=== PATIENT | male | born 1975 | race Hispanic/Latino ===

== ENCOUNTER 2019-08-03 20:18 | Inpatient (IN) | payer SELFPAY ==
[~2019-08-03] VITALS: Ht 175.3 cm; Wt 89.0 kg
--- NOTE | 2019-08-03 21:06 | Diagnostic Imaging Report ---
EXAMINATION: Head CT without contrast. HISTORY:Dizziness, nausea and vomiting. COMPARISON:None. TECHNIQUE: Multidetector axial images were obtained from the foramen magnum to the vertex without contrast. The images were reconstructed using brain and bone algorithms. Thin section brain images were reformatted into coronal and sagittal planes. Dose modulation, iterative reconstruction, and/or weight based adjustment of the mA/kV was utilized to reduce the radiation dose to as low as reasonably achievable. Intravenous contrast: None IMAGE QUALITY: Acceptable. FINDINGS: Skull/scalp: No lytic or blastic. lesions. No surgical changes. Parenchyma: No abnormal density. No acute hemorrhage, mass or acute major vascular territorial infarct. Arteries: No density suggestive of thrombosis. Dural sinuses: No abnormal density suggestive of thrombosis. Ventricles: No hydrocephalus or displacement. Extra-axial spaces: No abnormal density. Brain volume: Mild bifrontal cerebral volume loss. Craniocervical junction: No mass, Chiari malformation, or basilar invagination. Sella: No mass. Paranasal/mastoid sinuses: Under pneumatization and sclerosis of bilateral mastoid air cells possibly represent sequel of chronic inflammatory process. IMPRESSION: No acute intracranial abnormality. Mild predominantly bifrontal cerebral volume loss. Signed by: Dr. Nelia Trejo M.D. on 08/03/2019 9:03 PM
[2019-08-03] MEDS ORDERED: SODIUM CHLORIDE 0.9% 1000ML 1,000 ML IV STA (21:14)
[2019-08-03] MEDS ORDERED: HYDRALAZINE HCL 20 MG/ML VIAL IV ONE (21:15)
[2019-08-03 21:37] LABS: BASOPHILS # (AUTO) 0.1 (0.0-0.1); BASOPHILS % 0.5 % (0.0-1.0); HEMATOCRIT 46.6 % (38.2-49.6); HEMOGLOBIN 16.9 g/dL (14.0-18.0); LYMPHOCYTES # (AUTO) 0.8 (1.0-3.2); LYMPHOCYTES % 7.5 % (18.0-39.1); MEAN CORPUSCULAR HEMOGLOBIN 30.8 pg (28-32); MEAN CORPUSCULAR HGB CONC 36.3 g/dL (31-35); MONOCYTES # (AUTO) 0.3 (0.2-0.8); MONOCYTES % 3.2 % (4.4-11.3); NEUTROPHILS # (AUTO) 9.2 (2.1-6.9); NEUTROPHILS % 88.4 % (38.7-80.0); PLATELET COUNT 211 x10e3/uL (140-360); RED BLOOD COUNT 5.48 x10e6/uL (4.3-5.7); RED CELL DISTRIBUTION WIDTH 13.2 % (11.7-14.4)
[2019-08-03 21:59] LABS: ALANINE AMINOTRANSFERASE 41 IU/L (0-55); ALBUMIN/GLOBULIN RATIO 0.9 (0.8-2.0); ALKALINE PHOSPHATASE 93 IU/L (40-150); CALCIUM 9.8 mg/dL (8.4-10.2); CARBON DIOXIDE 23 mmol/L (22-29); CHLORIDE 97 mmol/L (98-107); CREATINE KINASE 162 IU/L (30-200); CREATININE, SERUM 1.29 mg/dL (0.72-1.25); EST GLOMERULAR FILTRATION RATE > 60 ML/MIN (60-); GLUCOSE 309 mg/dL (74-118); LIPASE 12 U/L (8-78); SODIUM 136 mmol/L (136-145)
--- NOTE | 2019-08-03 22:05 | Diagnostic Imaging Report ---
EXAMINATION: CHEST SINGLE (PORTABLE) COMPARISON: None INDICATION: Diabetic shock ^ERMD ORDER ^[id number] ^2135 ^Y DISCUSSION: Frontal view of the chest obtained at 2135 hours. HEART AND MEDIASTINUM: The heart is top normal in size, possibly due to portable technique. The aorta is mildly tortuous. Vascular markings are mildly prominent. LINES: None. LUNGS: Lung volumes are low. Minimal bibasilar atelectasis. PLEURA: Mild eventration of the right diaphragm. Costophrenic angles are sharp. No pneumothorax. BONES AND SOFT TISSUES: No focal osseous lesion. The soft tissues are normal. IMPRESSION: Low lung volumes with minimal bibasilar atelectasis. Signed by: Dr. Vicenta Rosas MD on 08/03/2019 10:02 PM
[2019-08-03 22:42] LABS: BLOOD UREA NITROGEN 22 mg/dL (7-26); BUN/CREATININE RATIO 16 (6-25)
[2019-08-03] MEDS ORDERED: METOPROLOL TARTRATE INJ 1 MG/ML VIAL IV ONE (22:45)
[2019-08-03] MEDS ORDERED: ASPIRIN 81 MG CHEW TAB PO ONE (23:00)
--- OUTSIDE RECORDS SUMMARY | 2019-08-03 23:14 | XMS REPORT ---
Author Author [facility] Address Unknown Phone Unavailable Care Team Providers Care [employer] Consultant Name Role Phone Jv GUZMAN Unavailable Unavailable Problems This patient has no known problems. Allergies, Adverse Reactions, Alerts This patient has no known allergies or adverse reactions. Medications This patient has no known medications. Results Test Description Test Time Test Comments Text Results Atomic Results Result Comments CHEST SINGLE (PORTABLE) 2019-08-03 22:00:00 [place] [id number] Patient Name: CECILIA GALLOWAY MR #: [id number] : 1975 Age/Sex: 43/M Req #: [id number] Adm Physician: Ordered by: ABHINAV GUZMAN MD Report #: [id number] Location: ER Room/Bed: Procedure: [id number] DX/CHEST SINGLE (PORTABLE) Exam Date: 08/03/19 Exam Time: 2134 REPORT STATUS: Signed EXAMINATION: CHEST SINGLE (PORTABLE) COMPAR LEEANN: None INDICATION: Diabetic shock ERMD ORDER [id number] 2135 Y DISCUSSION: Frontal view of the chest obtained at 2135 hours. HEART AND MEDIASTINUM: The heart is top normal in size, possibly due to portable technique. The aorta is mildly tortuous. Vascular markings are mildly prominent. LINES: None. LUNGS: Lung volumes are low. Minimal bibasilar atelectasis. PLEURA: Mild eventration of the right diaphragm. Costophrenic angles are sharp. No pneumothorax. BONES AND SOFT TISSUES: No focal osseous lesion. The soft tissues are normal. IMPRESSION: Low lung volumes with minimal bibasilar atelectasis. Signed by: Dr. Liane Rosas MD on 08/03/2019 10:02 PM Dictated By: LIANE ROSAS MD 01 Transcribed By: NIKKI on 08/03/192201 COPY TO: ABHINAV GUZMAN MD CT BRAIN WO 2019-08-03 20:58:00 [place] [id number] Patient Name: CECILIA GALLOWAY MR #: [id number] : 1975 Age/Sex: 43/M Req #: [id number] Adm Physician: Ordered by: ABHINAV GUZMAN MD Report #: [id number] Location: ER Room/Bed: Procedure: CT/CT BRAIN WO Exam Date: 08/03/19 Exam Time: 2044 REPORT STATUS: Signed EXAMINATION: Head CT without contrast. HISTORY:Dizzi ness, nausea and vomiting. COMPARISON:None. TECHNIQUE: Multidetector axial images were obtained from the foramen magnum to the vertex without contrast. The images were reconstructed using brain and bone algorithms. Thin section brain images were reformatted into coronal and sagittal planes. Dose modulation, iterative reconstruction, and/or weight based adjustment of the mA/kV was utilized to reduce the radiation dose to as low as reasonably achievable. Intravenous contrast: None IMAGE QUALITY: Acceptable. FINDINGS: Skull/scalp: No lytic or blastic. lesions. No surgical changes. Parenchyma: No abnormal density. No acute hemorrhage, mass or acute major vascular territorial infarct. Arteries: No density suggestive of thrombosis. Dural sinuses: No abnormal density suggestive of thrombosis. Ventricles: No hydrocephalus or displacement. Extra- axial spaces: No abnormal density. Brain volume: Mild bifrontal cerebral volume loss. Craniocervical junction: No mass, Chiari malformation, or basilar invagination. Sella: No mass. Paranasal/mastoid sinuses: Under pneumatization and sclerosis of bilateral mastoid air cells possibly represent sequel of chronic inflammatory process. IMPRESSION: No acute intracranial abnormality. Mild predominantly bifrontal cerebral volume loss. Signed by: Dr. Nelia Trejo M.D. on 08/03/2019 9:03 PM Dictated By: NELIA TREJO MD 02 Transcribed By: NIKKI on 08/03/192102 COPY TO: ABHINAV GUZMAN MD
[2019-08-03] MEDS ORDERED: INSULIN REGULAR, HUMAN 100 UNIT/1 ML 3ML VIAL IV ONE (23:15)
[2019-08-03] MEDS ORDERED: SODIUM CHLORIDE 0.9% 1000ML 1,000 ML IV SCH (23:15)
[2019-08-03] MEDS ORDERED: NICARDIPINE HCL SOLN 20 MG in SODIUM CHLORIDE 0.9% 250ML 200 ML IV STA (23:45)
[2019-08-03 23:52] LABS: AMPHETAMINES SCREEN,URINE N (NEGATIVE); PHENCYCLIDINE SCREEN,URINE N (NEGATIVE)
[2019-08-03 23:53] LABS: BENZODIAZEPINES SCREEN,URINE N (NEGATIVE)
[2019-08-03 23:55] LABS: CLARITY,URINE CLEAR (CLEAR); COLOR,URINE YELLOW (YELLOW)
[2019-08-03 23:56] LABS: LEUKOCYTE ESTERASE ,URINE NEGATIVE (NEGATIVE); NITRITE,URINE NEGATIVE (NEGATIVE); PROTEIN,URINE DIPSTICK 2+ (NEGATIVE)
[2019-08-03 23:57] LABS: BACTERIA,URINE FEW /HPF; BILIRUBIN,URINE NEGATIVE (NEGATIVE); EPITHELIAL CELLS,URINE FEW /LPF; KETONES,URINE 2+ (NEGATIVE); RBC,URINE 0-5 /HPF (0-5); URINE UROBILINOGEN 0.2 mg/dL (0.2 - 1); WBC,URINE (MAN) 0-5 /HPF (0-5)
[2019-08-04] VITALS (7 sets, daily range): BP systolic 133–200; BP diastolic 85–111
--- NOTE | 2019-08-04 00:01 | NUR ---
DR. CARLOS AND Mikala BAUM RN NOTIFIED AND AWARE OF CRITICAL LAB VALUE; LACTIC ACID 24.1.
[2019-08-04] MEDS ORDERED: NICARDIPINE 20MG/200ML PREMIX 200 ML ONE (00:03)
[2019-08-04] MEDS ORDERED: ONDANSETRON HCL INJ 2MG/ML 2ML 2 MG/ML VIAL IV STA (00:55)
--- NOTE | 2019-08-04 02:03 | NUR ---
IV CARDENE TITRATED TO 2.5MG/HR. BP 129/87 P.110
--- NOTE | 2019-08-04 03:30 | NUR ---
CARDENE DRIP STOPPED
[2019-08-04 04:32] LABS: ANION GAP 18.5 mmol/L (8-16); BLOOD UREA NITROGEN 21 mg/dL (7-26); BUN/CREATININE RATIO 19 (6-25); CALCIUM 9.2 mg/dL (8.4-10.2); CARBON DIOXIDE 22 mmol/L (22-29); CHLORIDE 103 mmol/L (98-107); CREATININE, SERUM 1.11 mg/dL (0.72-1.25); EST GLOMERULAR FILTRATION RATE > 60 ML/MIN (60-); GLUCOSE 205 mg/dL (74-118); SODIUM 140 mmol/L (136-145)
[2019-08-04 04:37] LABS: POTASSIUM 3.5 mmol/L (3.5-5.1)
[2019-08-04] MEDS ORDERED: POTASSIUM CHLORIDE 20 MEQ TAB CR PO STA (05:03)
[2019-08-04] MEDS ORDERED: SODIUM CHLORIDE 0.9% 1000ML 1,000 ML IV ONE (05:15)
[2019-08-04] MEDS ORDERED: INSULIN REGULAR, HUMAN 100 UNIT/1 ML 3ML VIAL IV ONE (05:15)
[2019-08-04 05:18] LABS: CREATINE KINASE MB 0.9 ng/mL (0-5.0)
[2019-08-04] MEDS: METOPROLOL TARTRATE 50 MG TAB PO SCH (05:50)
--- NOTE | 2019-08-04 07:13 | NUR ---
report given to dina silva
[2019-08-04 07:45] LABS: ANION GAP 11.2 mmol/L (8-16); BLOOD UREA NITROGEN 19 mg/dL (7-26); BUN/CREATININE RATIO 18 (6-25); CALCIUM 8.4 mg/dL (8.4-10.2); CARBON DIOXIDE 25 mmol/L (22-29); CHLORIDE 105 mmol/L (98-107); CREATININE, SERUM 1.03 mg/dL (0.72-1.25); EST GLOMERULAR FILTRATION RATE > 60 ML/MIN (60-); GLUCOSE 176 mg/dL (74-118); POTASSIUM 3.2 mmol/L (3.5-5.1); SODIUM 138 mmol/L (136-145)
[2019-08-04 08:02] LABS: BASOPHILS % 0.2 % (0.0-1.0); EOSINOPHILS % 0.2 % (0.0-6.0); HEMATOCRIT 39.1 % (38.2-49.6); HEMOGLOBIN 14.2 g/dL (14.0-18.0); LYMPHOCYTES # (AUTO) 2.4 (1.0-3.2); LYMPHOCYTES % 19.8 % (18.0-39.1); MEAN CORPUSCULAR HEMOGLOBIN 31.6 pg (28-32); MEAN CORPUSCULAR HGB CONC 36.3 g/dL (31-35); MEAN CORPUSCULAR VOLUME 87.1 fL (81-99); MONOCYTES # (AUTO) 0.9 (0.2-0.8); MONOCYTES % 7.6 % (4.4-11.3); NEUTROPHILS # (AUTO) 8.9 (2.1-6.9); NEUTROPHILS % 71.9 % (38.7-80.0); PLATELET COUNT 223 x10e3/uL (140-360); RED BLOOD COUNT 4.49 x10e6/uL (4.3-5.7); RED CELL DISTRIBUTION WIDTH 13.6 % (11.7-14.4)
--- NOTE | 2019-08-04 08:35 | NUR ---
pt declined cristhian matress. left in room incase pt changes mind.
[2019-08-04] MEDS: ASPIRIN 81 MG ENTERIC COATED PO SCH (09:00)
--- NOTE | 2019-08-04 10:12 | Diagnostic Imaging Report ---
Examination: MRI BRAIN WITHOUT CONTRAST History: 43-year-old male with dizziness. Comparison studies: Head CT performed August 03, 2019 Technique: Sagittal T2; axial DWI, FLAIR, GRE or SWI, T1, Coronal FLAIR. Intravenous contrast: None Findings: Scalp: No abnormal signal. No masses. Bone marrow: Normal in signal intensity. Brain volume: Adequate for age. No volume loss. Ventricles: Normal in size and configuration. No hydrocephalus. Extra-axial spaces: No abnormalities. Parenchyma: There are areas of T2/FLAIR signal abnormality within the right caudate body and bilateral lentiform nuclei. No masses, hemorrhage, or acute vascular insults. Suprasellar and sellar region: No abnormalities. Craniocervical junction: No abnormalities. The foramen magnum is patent. No Chiari malformations. Vessels: Normal flow-voids in the arteries and sinuses. Additional findings:None. IMPRESSION: No acute intracranial abnormalities. Tiny dilated perivascular spaces versus chronic lacunar infarcts in the right caudate body and bilateral lentiform nuclei Signed by: Dr. Celeste Colon M.D. on 08/04/2019 10:09 AM
--- NOTE | 2019-08-04 10:13 | NUR ---
pt placed on wale
[2019-08-04] MEDS ORDERED: LISINOPRIL5 MG PO (10:48)
[2019-08-04] MEDS ORDERED: METFORMIN HCL500 MG PO (10:48)
[2019-08-04] MEDS ORDERED: HYDRALAZINE HCL 20 MG/ML VIAL IV ONE (12:14)
[2019-08-04] MEDS ORDERED: HYDRALAZINE HCL 20 MG/ML VIAL ONE (12:20)
[2019-08-04 12:24] LABS: CREATINE KINASE MB 0.7 ng/mL (0-5.0)
--- NOTE | 2019-08-04 12:26 | History and Physical ---
REASON FOR ADMISSION: Hypertensive urgency. HISTORY OF PRESENT ILLNESS: The patient is a 43-year-old gentleman with history of hypertension, who came in with acute onset of dizziness, was found to be in hypertensive urgency with negative colon CT, now on a drip, doing much better. PAST MEDICAL HISTORY: Hypertension, diabetes. MEDICATIONS: The patient is unsure of the name of his blood pressure medicine, but he is on metformin. ALLERGIES: NO ALLERGIES. SOCIAL HISTORY: Nonsmoker, nondrinker. FAMILY HISTORY: Hypertension and diabetes. PHYSICAL EXAMINATION: VITAL SIGNS: Temperature 98.6, pulse 74, blood pressure 152/100 on a drip, sats 98%. GENERAL: In no apparent distress, lying in bed. NECK: Supple. No lymphadenopathy. CARDIOVASCULAR: Regular rate and rhythm. LUNGS: Clear to auscultation bilaterally. ABDOMEN: Good bowel sounds. Soft, nontender. EXTREMITIES: No clubbing, cyanosis. NEUROLOGIC: Nonfocal. Moves all extremities x4. ASSESSMENT/PLAN: 1. Hypertensive urgency. Continue with current care since he is doing much better. We will consult Cardiology. 2. Diabetes. Continue to monitor his sugars before meal and at bedtime. 3. Dizziness is much better since his blood pressure is improved. We will have a consult with Neurology to see. Please see hospital chart for full details. MD SYED Fung/STAN /[id number]
--- NOTE | 2019-08-04 12:35 | NUR ---
per dr armas put pt on low dose sliding scale and give 40 mEq potassium po one time; orders read back and confirmed
[2019-08-04] MEDS ORDERED: POTASSIUM CHLORIDE 20 MEQ TAB CR PO ONE (12:36)
[2019-08-04] MEDS ORDERED: DEXTROSE 50% SYRINGE 50 ML IV PRN (12:45)
--- NOTE | 2019-08-04 13:00 | NUR ---
RECEIVED PT FROM ER ON BED. PT IS AAOX3. PT VERBALIZED HE FEELS DIZZINESS AND NAUSEA. PT BP IS HIGH . CALLED DR. REIS AND LEFT MESSAGE REGARDING PT HIGH BP. CALL LIGHT WITH IN EASY REACH. INSTRUCTED PT TO CALL FOR ANY NEEDS. EDUCATED PT ABOUT FALL PRECAUTIONS. PT DENIES NEEDS AT THIS TIME.
--- NOTE | 2019-08-04 13:01 | NUR ---
PT BLOOD PRESSURE 200/110 AT THE TIME OF ARRIVAL TO THE UNIT. INFORMED DR. REIS. CALL AIRLINE MANAGER PER DR. REIS.
--- NOTE | 2019-08-04 13:03 | NUR ---
CALLED DR PINEDA REGARDING PT HIGH BP PER DR. REIS. STAT CONSULT ORDERED.
--- NOTE | 2019-08-04 13:10 | NUR ---
CHECKED PT. AAOX3. PT DENIES NEEDS AT THIS TIME.
[2019-08-04] MEDS ORDERED: AMLODIPINE BESYLATE 10 MG TAB PO ONE (14:00)
--- NOTE | 2019-08-04 15:30 | NUR ---
PAGED AND REPORTED PT BLOOD PRESSURE. NEW ORDER RECEIVED.
[2019-08-04] MEDS ORDERED: CLONIDINE HCL 0.2 MG TAB PO ONE (15:45)
--- NOTE | 2019-08-04 15:45 | NUR ---
RENEW HOME MEDS PER DR. REIS.
[2019-08-04] MEDS ORDERED: TRAMADOL HCL 50 MG TAB PO PRN (16:00)
[2019-08-04] MEDS: METFORMIN HCL 500 MG TAB PO SCH (18:43)
--- NOTE | 2019-08-04 19:00 | NUR ---
BEDSIDE SHIFT REPORT GIVEN TO THE SILVERSMITH APPRENTICE RN. PT DENIED FURTHER NEEDS.
[2019-08-04] MEDS: AMLODIPINE BESYLATE 10 MG TAB PO SCH (20:37)
[2019-08-05] VITALS (7 sets, daily range): BP systolic 114–151; BP diastolic 78–95
--- NOTE | 2019-08-05 01:35 | Consultation ---
DATE OF CONSULTATION: 08/04/2019 Neurology consult note HISTORY OF PRESENT ILLNESS: Mr. Garner is a 43-year-old right-hand dominant man with past medical history significant for hypertension and diabetes mellitus type 2, admitted to [facility] on August 03, 2019, with symptoms suspicious for stroke. On the day of admission, the patient experienced the gradual onset of dizziness, which is further described as a vertiginous sensation, poor balance, and impairment of gait. Mr. Garner endorses diaphoresis and abdominal pain as well. He does not report a visual field cut or other disturbance, dysarthria, aphasia, facial droop, hemiparesis, hemihypesthesia, or confusion associated with the above symptoms. Suspecting his symptoms are secondary to dehydration, Mr. Garner consumed a bottle of Gatorade, then went to bed to sleep. When he awoke approximately 2 hours later, the symptoms persisted and had in fact worsened. Mr. Garner then proceeded to the emergency center at [facility] for further evaluation of his symptoms. Upon arrival in the emergency center, the patient was afebrile with a blood pressure of 182/121 mmHg and a pulse of 90 beats per minute. According to review of the electronic medical records, the patient did have a systolic blood pressure greater than 200 mmHg at some point while in the emergency center. Documentation of the patient's neurological examination is unavailable for review at present. Other than significantly elevated serum glucose as well as mildly elevated lactic acid level, the patient's blood work in the emergency center was unremarkable. While in the emergency center, CT of the brain without contrast was performed. This study did not reveal evidence of recent large territorial ischemia or hemorrhage. While in the emergency center, the patient was placed on an infusion of nicardipine to gradually lower his blood pressure. As his blood pressure decreased, his symptoms gradually resolved. At present, the patient does not report vertigo, poor balance, impairment of gait, or any other neurological symptoms. His abdominal pain and diaphoresis have resolved as well. As stated above, the patient does have a history of hypertension and diabetes mellitus type 2, for which he takes lisinopril and metformin. Mr. Garner endorses his compliance with these medications. The patient does state he does not routinely see a doctor. REVIEW OF SYSTEMS: Abdominal pain, diaphoresis, dizziness which is further described as a vertiginous sensation, impairment of balance and gait. Otherwise, a 12-point review of systems is negative. PAST MEDICAL HISTORY: Hypertension, and diabetes mellitus type 2. PAST SURGICAL HISTORY: None. PAST HOSPITALIZATIONS: None. FAMILY MEDICAL HISTORY: Hypertension and diabetes mellitus. SOCIAL HISTORY: Mr. Garner is single. He is unemployed. The patient does not report tobacco, alcohol, or recreational drug use. HOME MEDICATIONS: Lisinopril 5 mg by mouth daily, metformin 500 mg by mouth daily. Hospital medications: Norvasc, aspirin, lisinopril, metformin, metoprolol, and tramadol. ALLERGIES: NO KNOWN DRUG ALLERGIES. NO KNOWN FOOD ALLERGIES. NO KNOWN ALLERGIES TO LATEX. NO KNOWN ALLERGIES TO IODINE OR OTHER CONTRAST MATERIALS. PHYSICAL EXAMINATION: VITAL SIGNS: Height 69 inches, weight 198 pounds, BMI 29.2 kg/m2, blood pressure 163/107 mmHg, pulse 101 beats per minute, respiratory rate 19 breaths per minute, and oxygen saturation 97% on 2 L by nasal cannula. GENERAL: The patient is awake and alert, does not appear distressed. Overweight. HEENT: Normocephalic and atraumatic. Pupils are equal, round, and reactive to light. Moist mucous membranes. NECK: Supple. No appreciable thyromegaly. No appreciable carotid bruits. CARDIOVASCULAR: S1, S2, regular rate and rhythm. No murmurs, rubs, or gallops. RESPIRATORY: Clear to auscultation bilaterally. No wheezes, rhonchi, or rales. EXTREMITIES: The skin is warm and dry. No clubbing, cyanosis, or edema. The posterior tibial and dorsalis pedis pulses are 1+ and symmetric. SKIN: No rashes or lesions. NEUROLOGIC: Memory/Attention: The patient is awake and alert, oriented to person, place, time, and situation. Cranial Nerves: Cranial nerve I - not tested. Cranial nerve II, III, IV, and - pupils are equal and round, react briskly to light (from 4 mm to 2 mm). Extraocular movements intact. No nystagmus. Cranial nerve V - sensation to light touch and pinprick is intact in the bilateral V1 through V3 distributions. Strength in the temporalis and masseter muscles is within normal limits. Cranial nerve VII - the face is symmetric as are all facial movements. Strength is within normal limits. Cranial nerve VIII - hearing is intact to finger rub bilaterally. Cranial nerve IX, X - the soft palate elevates equally and symmetrically. Cranial nerve XI - normal strength of the bilateral sternocleidomastoid and trapezius muscles. Cranial nerve XII - the tongue protrudes midline and moves symmetrically from [id number]. Strength: Bulk is normal. Strength is 5/5 in the bilateral deltoids, biceps, triceps, wrist flexors and extensors, finger flexors and extensors, intrinsic hand muscles, hip flexors, knee flexors and extensors, ankle dorsiflexion and plantar flexion, and intrinsic foot muscles. Tone is normal. DTRs: Deep tendon reflexes are 2+ and symmetric at the triceps, biceps, brachioradialis, patellas, and Achilles. Plantar responses are flexor bilaterally. Sensation: Sensation is intact to light touch and pinprick in both arms and both legs. Cerebellar: Qtssar-zhsi-jqtlhn and heel-rush movements are intact without dysmetria or other impairment. Gait: Deferred. Speech: Spontaneous speech is normal without appreciable dysarthria or aphasia. Repetition is intact. Involuntary movements: None. Pronator Drift: None. LABORATORY DATA: A basic metabolic panel is significant for a mildly elevated anion gap of 18.5 and an elevated serum glucose of 205. Liver function panel collected on August 03, 2019, was significant for a total bilirubin of 1.3, AST of 42, total protein of 8.5, and globulin of 4.5. Cardiac enzymes are negative x3. Lactic acid 24.1. CBC with differential and platelets reveal a mildly elevated white blood cell count of 12.32 with a normal differential. The hemoglobin and hematocrit are 14.2 and 39.1, respectively. The platelet count is 223. A urinalysis collected on August 03, 2019, revealed 2+ protein and 2+ ketones. A urine drug screen was negative. DIAGNOSTIC STUDIES: Chest x-ray on 08/03/2019: Low lung volumes with minimal bibasilar atelectasis. CT of the brain without contrast on 08/03/2019: On my review, there is no evidence of recent or remote large territorial ischemia, hemorrhage, mass, or mass effect. There is mild diffuse cerebral atrophy with bifrontal lobe predominance. There are no findings suggestive of chronic small vessel ischemic disease. Bilateral carotid artery ultrasound with Doppler 08/04/2019. There is no atherosclerosis observed in either carotid artery system. Flow is antegrade in the bilateral vertebral arteries. MRI of the brain without contrast 08/04/2019: On my review, there is no evidence of recent or remote large territorial ischemia, hemorrhage, mass, or mass effect. There is mild diffuse cerebral atrophy, slightly more prominent in the bilateral frontal lobes. There are findings compatible with mild chronic small vessel ischemic disease. ASSESSMENT AND PLAN: Mr. Garner is a 43-year-old right-hand dominant man with hypertension and diabetes mellitus type 2, admitted to [facility] with dizziness, which is further described as a vertiginous sensation, poor balance, impairment of gait, diaphoresis, and abdominal pain in the setting of markedly elevated blood pressures. At present, the patient is asymptomatic. His neurological examination is nonfocal. His laboratory data and other diagnostic studies have been reviewed and are documented above. Mr. Garner did not experience a transient ischemic attack or stroke. Neither his history nor his neurological examination are consistent with peripheral vertigo. It is probable the patient's symptoms were secondary to hypertensive emergency. Treatment of hypertension and diabetes mellitus type 2 is deferred to the primary and Cardiology Services. Thank you for this consultation. There are no other recommendations from the Neurology Service at this time. Please call again with any questions or concerns. TIME SPENT: 50 minutes. Nery Pizarro MD CP/STAN /[id number] MTDSharifa
--- NOTE | 2019-08-05 02:09 | Consultation ---
DATE OF CONSULTATION: Cardiology Consultation HISTORY OF PRESENT ILLNESS: This is a 43-year-old man with a history of hypertension and diabetes mellitus, who presented to the Emergency Department with severe dizziness that worsened with changes in body position associated with severe diaphoresis. He denies any chest pain, palpitations, or shortness of breath. Upon arrival, he was profoundly hypertensive and was placed on multiple antihypertensives. The patient still states that he is currently dizzy. Denies any headaches. REVIEW OF SYSTEMS: A 12-point review of system was conducted, is negative except as stated above in the HPI. PAST MEDICAL HISTORY: As stated above in the HPI. PAST SURGICAL HISTORY: None recent. PAST FAMILY HISTORY: Noncontributory. SOCIAL HISTORY: No illicit drug, alcohol, or tobacco use. ALLERGIES: NO KNOWN DRUG ALLERGIES. MEDICATIONS: See medication reconciliation form. PHYSICAL EXAMINATION: VITAL SIGNS: Temperature is 96.7, heart rate is 97, respirations are 19, blood pressure is 163/107, and oxygen saturation 97% on 2 L nasal cannula. GENERAL: He is well appearing in no apparent distress. CARDIOVASCULAR: Regular rate and rhythm. No murmurs. LUNGS: Clear to auscultation. ABDOMEN: Soft, nontender, and nondistended. EXTREMITIES: No clubbing, cyanosis, or edema. VASCULAR: 2+ pulses. NEUROLOGIC: No focal deficits noted. LABORATORY DATA: Reviewed. Creatinine is 1.03. Glucose 319 on arrival, currently 211. Potassium 3.2. Telemetry monitoring revealed sinus tachycardia. IMPRESSION: 1. Dizziness. 2. Hypertensive urgency. 3. Uncontrolled diabetes mellitus. 4. Sinus tachycardia. RECOMMENDATIONS: Continue metoprolol and amlodipine at current doses. Change metoprolol to a long-acting form. Increase lisinopril for better blood pressure control. We will review cardiac testing. Amish Veloz DO BM/MODL /[id number]
--- NOTE | 2019-08-05 06:55 | NUR ---
BEDSIDE SHIFT REPORT GIVEN TO ONCOMING NURSE.PT RESTING IN BED WITH NO S/S OF DISTRESS.
--- NOTE | 2019-08-05 07:00 | NUR ---
BEDSIDE SHIFT REPORT RECEIVED FROM THE HEADING MAKER RN. PT DENIES NEEDS AT THIS TIME.
[2019-08-05] MEDS ORDERED: METFORMIN HCL 500 MG TAB PO SCH (08:00)
[2019-08-05] MEDS: METFORMIN HCL 500 MG TAB PO SCH (08:19)
[2019-08-05] MEDS: ASPIRIN 81 MG ENTERIC COATED PO SCH ×2 (08:19→08:30)
[2019-08-05] MEDS: LISINOPRIL 2.5 MG TAB PO SCH (08:20)
[2019-08-05] MEDS: METOPROLOL TARTRATE 50 MG TAB PO SCH (08:20)
[2019-08-05] MEDS ORDERED: AMLODIPINE BESYLATE 10 MG TAB PO SCH (09:00)
[2019-08-05] MEDS ORDERED: NON-FORMULARY MEDICATION (Lisinopril 5 MG) PO SCH (09:00)
--- NOTE | 2019-08-05 18:57 | NUR ---
BEDSIDE SHIFT REPORT GIVEN TO THE LAND PLANNER RN. PT DENIED FURTHER NEEDS.
[2019-08-05] MEDS: AMLODIPINE BESYLATE 10 MG TAB PO SCH (20:54)
[2019-08-06] VITALS (8 sets, daily range): BP systolic 140–164; BP diastolic 90–103
--- NOTE | 2019-08-06 07:27 | NUR ---
REPORT GIVEN TO ONCOMING NURSE,WALKING ROUNDS MADE.PT RESTING IN BED WITH NO S/S OF DISTRESS.
[2019-08-06] MEDS: METOPROLOL TARTRATE 50 MG TAB PO SCH (09:08)
[2019-08-06] MEDS: ASPIRIN 81 MG ENTERIC COATED PO SCH (09:08)
[2019-08-06] MEDS: METFORMIN HCL 500 MG TAB PO SCH (09:08)
[2019-08-06] MEDS: LISINOPRIL 2.5 MG TAB PO SCH (09:09)
--- NOTE | 2019-08-06 11:11 | Progress Note ---
DATE: SUBJECTIVE: A 43-year-old male, comes in with dizziness. The patient's CT scan was negative. MRI negative. The patient appears to have vertigo. Still continues with severe vertigo when getting up. PHYSICAL EXAMINATION: VITAL SIGNS: Temperature is 96.7, pulse of 69, respirations of 18, blood pressure is 140/90, and pulse ox of 98%. HEENT: Normocephalic and atraumatic. Nystagmus present. CVS: S1 and S2 normal. Regular rate and rhythm. ABDOMEN: Nontender and nondistended. EXTREMITIES: No clubbing, no cyanosis, and no edema. NEUROLOGIC: No focal deficits except for vertigo present. LABORATORY VALUES: All within normal limits since his arrival. Glucoses have been running 180s to 200. MEDICATIONS: He takes: 1. Amlodipine 10 mg. 2. Aspirin 81 mg. 3. Lisinopril 5 mg. 4. Metoprolol 50 mg twice a day. 5. Metformin 500 mg. 6. Tramadol. ASSESSMENT AND PLAN: 1. A 43-year-old gentleman with vertigo, rule out cerebrovascular accident, which has been done. MRI is negative. CT scan is negative. The patient also has a Cardiology consult done for high blood pressure. 2. Diabetes mellitus. We will continue to monitor the patient. The patient has sinus tachycardia. Right now, the patient is on metoprolol and amlodipine, and we will increase the lisinopril to 10 mg. For his vertigo, we will give him some meclizine. Further recommendation per clinical course. We will continue to monitor the patient. MD THERON Combs/MODL /[id number]
[2019-08-06] MEDS: MECLIZINE HCL 12.5 MG TAB PO SCH ×2 (14:00→20:25)
[2019-08-06] MEDS: AMLODIPINE BESYLATE 10 MG TAB PO SCH (20:25)
[2019-08-07] VITALS (11 sets, daily range): BP systolic 133–181; BP diastolic 93–117
--- NOTE | 2019-08-07 04:49 | Progress Note ---
DATE: 08/06/2019 Cardiology Progress Note SUBJECTIVE: No major events overnight. OBJECTIVE: VITAL SIGNS: Temperature afebrile, pulse 74, respiratory rate 20, blood pressure 159/102, and saturating 91% on room air. GENERAL: A 43-year-old man, in no acute distress, well developed, well nourished. CARDIOVASCULAR: Regular rate and rhythm. No murmurs, rubs, or gallops. LUNGS: Clear to auscultation bilaterally. ABDOMEN: Soft, nontender, and nondistended. NEURO AND PSYCH: Alert and oriented to person, place, and time. Normal affect. INPATIENT MEDICATIONS: Reviewed. TELEMETRY DATA: Reviewed, reveals normal sinus rhythm. ASSESSMENT/PLAN: 1. Dizziness. 2. Hypertensive urgency. 3. Uncontrolled diabetes. 4. Sinus tachycardia. RECOMMENDATION: His blood pressure and heart rate have improved greatly since admission. Continue current medications. Thank you for this consult. We will continue to follow. MD NITZA Mathis/STAN /[id number]
[2019-08-07] MEDS: MECLIZINE HCL 12.5 MG TAB PO SCH ×3 (05:28→21:23)
[2019-08-07 05:35] LABS: BASOPHILS % 0.5 % (0.0-1.0); EOSINOPHILS # (AUTO) 0.1 (0.0-0.4); EOSINOPHILS % 1.4 % (0.0-6.0); HEMATOCRIT 40.8 % (38.2-49.6); HEMOGLOBIN 14.7 g/dL (14.0-18.0); LYMPHOCYTES # (AUTO) 2.5 (1.0-3.2); LYMPHOCYTES % 29.2 % (18.0-39.1); MEAN CORPUSCULAR HEMOGLOBIN 30.8 pg (28-32); MEAN CORPUSCULAR VOLUME 85.4 fL (81-99); MONOCYTES # (AUTO) 0.6 (0.2-0.8); MONOCYTES % 6.7 % (4.4-11.3); NEUTROPHILS # (AUTO) 5.3 (2.1-6.9); NEUTROPHILS % 61.8 % (38.7-80.0); PLATELET COUNT 225 x10e3/uL (140-360); RED BLOOD COUNT 4.78 x10e6/uL (4.3-5.7); RED CELL DISTRIBUTION WIDTH 12.8 % (11.7-14.4)
[2019-08-07 06:02] LABS: ALANINE AMINOTRANSFERASE 32 IU/L (0-55); ALBUMIN 3.2 g/dL (3.5-5.0); ALBUMIN/GLOBULIN RATIO 0.9 (0.8-2.0); ALKALINE PHOSPHATASE 81 IU/L (40-150); ANION GAP 14.1 mmol/L (8-16); BLOOD UREA NITROGEN 18 mg/dL (7-26); BUN/CREATININE RATIO 18 (6-25); CALCIUM 9.1 mg/dL (8.4-10.2); CARBON DIOXIDE 24 mmol/L (22-29); CHLORIDE 103 mmol/L (98-107); EST GLOMERULAR FILTRATION RATE > 60 ML/MIN (60-); GLUCOSE 147 mg/dL (74-118); MAGNESIUM 1.7 MG/DL (1.3-2.1); POTASSIUM 3.1 mmol/L (3.5-5.1); SODIUM 138 mmol/L (136-145)
[2019-08-07] MEDS ORDERED: POTASSIUM CHLORIDE 20 MEQ TAB CR PO ONE (08:30)
[2019-08-07] MEDS: ASPIRIN 81 MG ENTERIC COATED PO SCH (09:51)
[2019-08-07] MEDS: METFORMIN HCL 500 MG TAB PO SCH (09:51)
[2019-08-07] MEDS: METOPROLOL TARTRATE 50 MG TAB PO SCH (09:52)
[2019-08-07] MEDS: LISINOPRIL 2.5 MG TAB PO SCH (09:52)
[2019-08-07] MEDS: AMLODIPINE BESYLATE 10 MG TAB PO SCH (20:20)
--- NOTE | 2019-08-07 21:50 | NUR ---
PT BP CONTINUES TO BE ELEVATED AFTER NIGHT TIME DOSE OF AMLODIPINE 10MG PO. BP IS CURRENTLY 181/117. DR. REIS NOTIFIED. NEW ORDER FOR CLONIDINE 0.2 MG PO ONE TIME DOSE TO BE GIVEN.
[2019-08-07] MEDS ORDERED: CLONIDINE HCL 0.2 MG TAB PO ONE (22:15)
--- NOTE | 2019-08-07 22:40 | NUR ---
ONE TIME CLONIDINE GIVEN ORDERED. WILL CONTINUE TO MONITOR PT CLOSELY.
[2019-08-08] VITALS (8 sets, daily range): BP systolic 114–144; BP diastolic 81–96
--- NOTE | 2019-08-08 01:41 | Progress Note ---
DATE: 08/07/2019 Cardiology Progress Note SUBJECTIVE: The patient denies chest pain or shortness of breath. Reports he is still dizzy. SUBJECTIVE: VITAL SIGNS: Temperature 98.2 degrees, pulse 78, respiratory rate 19, blood pressure 172/114, and oxygen saturation 99% GENERAL: Awake, alert, in no acute distress. LUNGS: Clear to auscultation bilaterally. No wheezes or crackles. CARDIOVASCULAR: Normal rate, regular rhythm. No murmur. Normal S1 and S2. ABDOMEN: Soft and nontender. EXTREMITIES: No edema. CARDIAC MEDICATIONS: 1. Amlodipine 10 mg p.o. at bedtime. 2. Lexapro 5 mg p.o. daily. 3. Metoprolol tartrate 50 mg p.o. daily. 4. Aspirin 81 mg p.o. daily. LABORATORY DATA: WBC 8.49, hemoglobin 14.7, hematocrit 40.8, platelets 225. Sodium 138, potassium 3.1, chloride 103, CO2 of 24, BUN 18, and creatinine 1. TELEMETRY: Normal sinus rhythm. IMPRESSION: 1. Dizziness. 2. Hypertensive urgency. 3. Diabetes mellitus. 4. Sinus tachycardia. RECOMMENDATIONS: Blood pressure is not well controlled, increase carvedilol. Monitor the patient on telemetry. No arrhythmias have been documented to explain the patient's symptoms. Continue current cardiac medications. Thank you for this consult. We will continue to follow. Opal Frey MD ABS/MODL /[id number]
[2019-08-08] MEDS: MECLIZINE HCL 12.5 MG TAB PO SCH ×3 (06:04→21:29)
[2019-08-08] MEDS: METFORMIN HCL 500 MG TAB PO SCH (08:35)
[2019-08-08] MEDS: ASPIRIN 81 MG ENTERIC COATED PO SCH (08:35)
[2019-08-08] MEDS: LISINOPRIL 2.5 MG TAB PO SCH ×2 (08:36→17:02)
[2019-08-08] MEDS: METOPROLOL TARTRATE 50 MG TAB PO SCH (08:36)
--- NOTE | 2019-08-08 08:38 | Progress Note ---
DATE: SUBJECTIVE: The patient still unfortunately has significant increased spikes with his blood pressure and still complains of his dizziness. Currently, his blood pressure is doing much better on p.r.n. dose of clonidine. The patient did have adjustments of his blood pressure medicine yesterday despite that he still had significant spikes in his blood pressure. OBJECTIVE: VITAL SIGNS: Currently, temperature is 98.6, pulse 72, blood pressure 114/81, sats 98% on room air. GENERAL: He is no apparent distress. CARDIOVASCULAR: Regular rate and rhythm. LUNGS: Clear to auscultation bilaterally. ABDOMEN: Good bowel sounds. Soft and nontender. EXTREMITIES: No clubbing or cyanosis. NEUROLOGIC: Nonfocal. Moves all extremities x4. ASSESSMENT AND PLAN: 1. Hypertension. Continue with current care since it is improved at the latest adjustments. We will defer to Cardiology as well. 2. Dizziness. Continue with current workup per Neurology. 3. Diabetes. Continue with current care and monitoring. 4. Hypokalemia. The potassium was replaced. Please see hospital chart for full details. MD SYED Fung/BECKYL /[id number]
--- NOTE | 2019-08-08 09:40 | NUR ---
Paged cardiology regarding discharge planning for patient. Awaiting call back.
--- NOTE | 2019-08-08 10:30 | NUR ---
Per Dr. Frey, check ortho VS and get echo. If negative, patient can dc home.
--- NOTE | 2019-08-08 13:22 | NUR ---
Spoke to [facility]-vascular about ECHO order. They stated they have a machine down and they are behind bc ER is full of stat orders, may be done late today , possibly tomorrow.
[2019-08-08] MEDS: AMLODIPINE BESYLATE 10 MG TAB PO SCH (21:28)
[2019-08-09] VITALS (8 sets, daily range): BP systolic 129–159; BP diastolic 90–108
--- NOTE | 2019-08-09 00:27 | Progress Note ---
DATE: 08/08/2019 Cardiology Progress Note SUBJECTIVE: The patient denies chest pain or shortness of breath. He continues to complain of dizziness. OBJECTIVE: VITAL SIGNS: Temperature 96.6 degrees, pulse 60, respiratory rate 17, blood pressure 143/96, oxygen saturation 98% on room air. GENERAL: Awake, alert, in no acute distress. LUNGS: Clear to auscultation bilaterally. No wheeze or crackles. CARDIOVASCULAR: Normal rate, regular rhythm. No murmur. Normal S1, S2. ABDOMEN: Soft, nontender. EXTREMITIES: No edema. CARDIAC MEDICATIONS: Amlodipine 10 mg p.o. at bedtime, Lexapro 5 mg p.o. b.i.d., metoprolol tartrate 50 mg p.o. daily, aspirin 81 mg p.o. q.a.m. LABORATORY DATA: Labs none today. TELEMETRY: Sinus bradycardia. IMPRESSION: 1. Dizziness. 2. Hypertensive urgency. 3. Diabetes mellitus. 4. Sinus tachycardia. RECOMMENDATIONS: Blood pressure is not well controlled, although improved with increase in lisinopril. Monitor the patient to explain the patient's symptoms. Carotid Doppler was without hemodynamically significant stenosis. Echocardiogram is pending. If orthostatics are negative and echocardiogram is unremarkable, he may be discharged home from a cardiac standpoint. Thank you for this consult. We will continue to follow. Opal Frey MD ABS/MODL /[id number]
[2019-08-09] MEDS: MECLIZINE HCL 12.5 MG TAB PO SCH ×3 (06:02→22:10)
[2019-08-09 06:43] LABS: BASOPHILS % 0.4 % (0.0-1.0); EOSINOPHILS # (AUTO) 0.1 (0.0-0.4); EOSINOPHILS % 1.5 % (0.0-6.0); HEMATOCRIT 41.3 % (38.2-49.6); HEMOGLOBIN 14.8 g/dL (14.0-18.0); LYMPHOCYTES # (AUTO) 2.4 (1.0-3.2); LYMPHOCYTES % 25.1 % (18.0-39.1); MEAN CORPUSCULAR HEMOGLOBIN 30.3 pg (28-32); MEAN CORPUSCULAR HGB CONC 35.8 g/dL (31-35); MEAN CORPUSCULAR VOLUME 84.6 fL (81-99); MONOCYTES # (AUTO) 0.6 (0.2-0.8); MONOCYTES % 5.8 % (4.4-11.3); NEUTROPHILS # (AUTO) 6.4 (2.1-6.9); NEUTROPHILS % 66.7 % (38.7-80.0); PLATELET COUNT 232 x10e3/uL (140-360); RED BLOOD COUNT 4.88 x10e6/uL (4.3-5.7); RED CELL DISTRIBUTION WIDTH 12.6 % (11.7-14.4)
[2019-08-09 07:03] LABS: ALBUMIN 3.3 g/dL (3.5-5.0); ALBUMIN/GLOBULIN RATIO 0.9 (0.8-2.0); ANION GAP 13.4 mmol/L (8-16); CALCIUM 9.5 mg/dL (8.4-10.2); CREATININE, SERUM 1.35 mg/dL (0.72-1.25); MAGNESIUM 1.7 MG/DL (1.3-2.1); POTASSIUM 3.4 mmol/L (3.5-5.1)
[2019-08-09] MEDS: METFORMIN HCL 500 MG TAB PO SCH (08:15)
[2019-08-09] MEDS: ASPIRIN 81 MG ENTERIC COATED PO SCH (08:15)
[2019-08-09] MEDS ORDERED: LISINOPRIL 2.5 MG TAB PO SCH (09:00)
[2019-08-09] MEDS: CARVEDILOL 12.5 MG TAB PO SCH (16:09)
--- NOTE | 2019-08-09 17:17 | Progress Note ---
DATE: 08/09/2019 Cardiology Progress Note SUBJECTIVE: The patient denies chest pain or shortness of breath, however, he reports he is still dizzy. OBJECTIVE: VITAL SIGNS: Temperature 96.5 degrees, pulse 75, respiratory rate 18, blood pressure 149/108, oxygen saturation 100% on room air. GENERAL: Awake, alert, in no acute distress. LUNGS: Clear to auscultation bilaterally. No wheezes or crackles. CARDIOVASCULAR: Normal rate, regular rhythm. No murmur. Normal S1, S2. ABDOMEN: Soft, nontender. EXTREMITIES: No edema. CARDIAC MEDICATIONS: Lisinopril 10 mg p.o. b.i.d., aspirin 81 mg p.o. daily, amlodipine 10 mg p.o. at bedtime. LABORATORY DATA: WBC 9.64, hemoglobin 14.8, hematocrit 41.3, platelets 232. Sodium 136, potassium 3.4, chloride 102, CO2 of 24, BUN 26, creatinine 1.35. TELEMETRY: Normal sinus rhythm. IMPRESSION: 1. Dizziness. 2. Hypertensive urgency. 3. Diabetes mellitus. 4. Sinus tachycardia. RECOMMENDATIONS: Blood pressure remains poorly controlled. Creatinine has increased with increase in lisinopril. We will discontinue TERENCE at this time. Start carvedilol instead. The patient has not demonstrate any arrhythmias on telemetry to explain his symptoms. Carotid Doppler was without evidence of hemodynamically significant stenosis. Echocardiogram was largely unremarkable. No further cardiac evaluation is indicated at this time. Thank you for this consult. We will continue to follow. Opal Frey MD ABS/MODL /[id number]
[2019-08-09] MEDS: AMLODIPINE BESYLATE 10 MG TAB PO SCH (22:10)
[2019-08-10] VITALS (8 sets, daily range): BP systolic 111–154; BP diastolic 61–96
[2019-08-10] MEDS: MECLIZINE HCL 12.5 MG TAB PO SCH ×3 (05:12→22:12)
[2019-08-10] MEDS: ASPIRIN 81 MG ENTERIC COATED PO SCH (08:36)
[2019-08-10] MEDS: METFORMIN HCL 500 MG TAB PO SCH (08:36)
[2019-08-10] MEDS: CARVEDILOL 12.5 MG TAB PO SCH ×2 (08:37→16:32)
--- NOTE | 2019-08-10 17:17 | Progress Note ---
DATE: 08/10/2019 Cardiology Progress Note SUBJECTIVE: The patient denies chest pain or shortness of breath. He remains dizzy. SUBJECTIVE: VITAL SIGNS: Temperature 97.6 degrees, pulse 83, respiratory rate 20, blood pressure 111/60, and oxygen saturation 98% on room air. GENERAL: Awake, alert, no acute distress. LUNGS: Clear to auscultation bilaterally. No wheezes or crackles. CARDIOVASCULAR: Normal rate. Regular rhythm. No murmur. Normal S1, S2. ABDOMEN: Soft, nontender. EXTREMITIES: No edema. CARDIAC MEDICATIONS: 1. Carvedilol 12.5 mg p.o. b.i.d. 2. Aspirin 81 mg p.o. daily. 3. Amlodipine 10 mg p.o. at bedtime. LABORATORY DATA: None today. IMPRESSION: 1. Dizziness. 2. Hypertensive urgency. 3. Diabetes mellitus. 4. Sinus tachycardia. RECOMMENDATIONS: Blood pressure is better controlled. Continue current cardiac medications. The patient has not demonstrated any arrhythmias on telemetry to explain his symptoms. Carotid Doppler without evidence of hemodynamically significant stenosis. Echocardiogram was largely unremarkable. No further cardiac evaluation is indicated at this time. Dizziness is unlikely to be of cardiac etiology. Thank you for this consult. We will continue to follow. Opal Frey MD ABS/MODL /[id number]
--- NOTE | 2019-08-10 20:10 | NUR ---
Dr. Pizarro here to see pt
[2019-08-10] MEDS: AMLODIPINE BESYLATE 10 MG TAB PO SCH (22:12)
[2019-08-11] VITALS: BP 113/99
[2019-08-11 04:00] VITALS: BP 124/93
[2019-08-11] MEDS: MECLIZINE HCL 12.5 MG TAB PO SCH (05:17)
--- NOTE | 2019-08-11 07:06 | Discharge Summary ---
DISCHARGE DIAGNOSES: 1. Hypertensive urgency. 2. Benign positional vertigo. 3. Chronic kidney disease, stage 3. 4. Diabetes. HISTORY OF PRESENT ILLNESS AND HOSPITAL COURSE: See hospital chart for full details. The patient is a gentleman, who presented with noncompliance with his medication, came in with hypertensive urgency as well as dizziness, where he was brought in, was seen by both Neurology and Cardiology, was placed on blood pressure medications with Coreg 12.5 mg b.i.d. and Norvasc 10 mg daily, was able to bring his blood pressure down to a very good level. His vertigo initially was pretty substantial that affected his ability to ambulate, but by the time of discharge, it was minimally involved. He was taught how to do Femi maneuver by Dr. Pizarro and at the time of discharge he was really wanting to go home. He was able to ambulate on his own with very minimal vertigo attacks and the patient was discharged home with his medications of metformin t.i.d., Norvasc 10 mg a day, and some meclizine q.8 p.r.n. as well as Coreg 12.5 mg b.i.d. His echo and carotid Dopplers were unremarkable. The patient . Please see hospital chart for full details. MD SYED Fung/STAN /[id number]
[2019-08-11 08:15] VITALS: BP 117/86
[2019-08-11] MEDS: CARVEDILOL 12.5 MG TAB PO SCH (08:23)
[2019-08-11] MEDS: ASPIRIN 81 MG ENTERIC COATED PO SCH (08:23)
[2019-08-11] MEDS: METFORMIN HCL 500 MG TAB PO SCH (08:23)
[2019-08-11 08:24] VITALS: BP 117/86
[2019-08-11] MEDS ORDERED: METFORMIN HCL500 MG PO (10:43)
[2019-08-11] MEDS ORDERED: MECLIZINE HCL12.5 MG PO (10:44)
[2019-08-11] MEDS ORDERED: CARVEDILOL12.5 MG PO (10:44)
[2019-08-11] MEDS ORDERED: AMLODIPINE BESY10 MG PO (10:44)
--- NOTE | 2019-08-11 12:58 | NUR ---
patient discharged home, prescription given ,IV canula removed with tip intact, no ss of infiltration, patient denies any pain, no distress noted, family here to pick patient. transported via wheelchair to [facility]
== END 2019-08-11 12:55 | disposition home or self-care (01) | DRG 305 ==
LOC: ER 20:18 → ERHOLD 23:11 → MED/SURG2 08-04 12:50 → OBSVTOIN 08-06 07:20
PROVIDERS: ADMIT Internal Medicine; ATTEND Internal Medicine
DX: I16.0 Hypertensive urgency (principal); E11.22 Type 2 diabetes mellitus with diabetic chronic kidney disease; I12.9 Hypertensive chronic kidney disease with stage 1 through stage 4 chronic kidney disease, or unspecified chronic kidney disease; N18.3 Chronic kidney disease, stage 3 (moderate); Z79.4 Long term (current) use of insulin; H81.10 Benign paroxysmal vertigo, unspecified ear; Z91.14 Patient's other noncompliance with medication regimen; R00.0 Tachycardia, unspecified; E87.6 Hypokalemia
CPT/HCPCS: 36415; 70450; 70551; 71045; 80048; 80053; 80307; 81001; 82550; 82553; 82948; 83605; 83690; 83735; 84484; 85025; 93306; 93880; 99284; G0378; J0360; J2405; J7030; J7050

== ENCOUNTER 2025-07-20 14:39 | Emergency (ER) | payer SELFPAY ==
[~2025-07-20] VITALS: Ht 172.7 cm; Wt 90.7 kg
[~2025-07-20 14:39] MED LIST: AMLODIPINE BESY10 MG PO; CARVEDILOL12.5 MG PO; CEPHALEXIN500 MG PO; LISINOPRIL5 MG PO; MECLIZINE HCL12.5 MG PO; METFORMIN HCL500 MG PO
[2025-07-20 15:07] VITALS: PULSE 88; RESP 17; TEMP 97.8
[2025-07-20 17:37] VITALS: BP 152/102; O2SAT 97
== END 2025-07-20 16:44 | disposition home or self-care (01) ==
LOC: ER 14:50
DX: S90.812A Abrasion, left foot, initial encounter (principal); X58.XXXA Exposure to other specified factors, initial encounter; Y92.89 Other specified places as the place of occurrence of the external cause; I10 Essential (primary) hypertension; E11.9 Type 2 diabetes mellitus without complications; Z86.73 Personal history of transient ischemic attack (TIA), and cerebral infarction without residual deficits
CPT/HCPCS: 99282